=== PATIENT | male | born 1940 | race Caucasian/White ===

== ENCOUNTER → 2016-05-17 | Day surgery (SDC) | payer OTHER ==
[2016-05-05 11:09] VITALS: Ht 172.7 cm; Wt 92.3 kg
[~2016-05-17] VITALS: Ht 172.7 cm; Wt 92.3 kg
[~2016-05-17] MED LIST: ALPR0.25 PO; ATOR10TA88 PO; ATROPINE SULFATE 0.1 MG/ML 5ML SYR IV PRN; EpHEDrine SULFATE INJ 50 MG/ML AMP IV PRN; FENTANYL CITRATE INJ 50 MCG/1 ML 2 ML VIAL ONE; LEVO100T PO; LIDOCAINE HCL 2% 2 ML VIAL (20MG/ML) ONE; PROPOFOL IV EMULSION 10 MG/ML 20 ML VIAL IV ONE; SODIUM CHLORIDE 0.9% 500ML 500 ML IV ONE; ZOLP10TA PO
--- NOTE | 2016-05-17 12:51 | Endo History and Physical ---
History & Physical Date of Service: May 17, 2016. Chief Complaint: History of polyps IBS Referring Physician: Dr Lei Coleman History of Present Illness 75 yo CM who presents for colonoscopy secondary to history of colon polyps. Past Surgical History Hx Cardiac Surgery: No Hx Internal Defibrillator: No Hx Pacemaker: No Hx Abdominal Surgery: Yes (CAUTERIZATION OF ESOPHAGUS (GASTRIC ULCER), PANCHO) Hx of Implantable Prosthesis: No Hx Post-Op Nausea and Vomiting: No Hx Cancer Surgery: No Hx Thoracic Surgery: No Hx Orthopedic: No Hx Urinary Tract Surgery: No Family History None Social History Smoking Status: Former Smoker Hx Substance Use: No Hx Alcohol Use: Yes (2 BEERS DAILY) Allergies Coded Allergies: No Known Allergies (Unverified , 05/05/16) Current Medications Reported Home Medications Medications Dose Route/Sig Max Daily Dose Days Date Category Xanax (Alprazolam) 0.25 Mg Tab 0.25 Mg PO TID PRN 05/05/16 Reported Lipitor (Atorvastatin Calcium) 10 Mg Tab 10 Mg PO Q2D 02/06/13 Reported Ambien (Zolpidem Tartrate) 10 Mg Tab 5 Mg PO HS PRN 02/02/13 Reported Synthroid (Levothyroxine Sodium) 100 Mcg Tab 100 Mcg PO QAM 02/02/13 Reported Vital Signs Weight (Kilograms): 92.27 Height (Feet): 5 Height (Inches): 8 Date Time Temp Pulse Resp B/P Pulse Ox O2 Delivery O2 Flow Rate FiO2 05/17/16 12:40 36.7 76 18 158/84 97 Room Air Physical Exam General Appearance: WD/WN, no apparent distress Respiratory/Chest: Auscultation: breath sounds normal Cardiovascular: Heart Auscultation: RRR Abdomen: Bowel Sounds: normal Inspection & Palpation: soft, non-distended, no tenderness, guarding & rebound Assessment and Plan Assessment: 75 yo CM who presents for colonoscopy secondary to history of colon polyps. Plan: Proceed with colonoscopy.
--- NOTE | 2016-05-17 13:39 | Anesthesiology Progress Note ---
Anesthesia Post Op Note Date & Time May 17, 2016 at 13:39 Vital Signs Pain Intensity: 0 Vital Signs Past 12 Hours Date Time Temp Pulse Resp B/P Pulse Ox O2 Delivery O2 Flow Rate FiO2 05/17/16 12:40 36.7 76 18 158/84 97 Room Air Notes Mental Status: alert / awake / arousable, participated in evaluation Pt Amnestic to Procedure: Yes Nausea / Vomiting: adequately controlled Pain: adequately controlled Airway Patency, RR, SpO2: stable & adequate BP & HR: stable & adequate Hydration State: stable & adequate Anesthetic Complications: no major complications apparent
--- NOTE | 2016-05-17 13:42 | GI REPORT ---
Procedure Date: 05/17/2016 12:53 PM Procedure: Colonoscopy Indications: High risk colon cancer surveillance: Personal history of colonic polyps Medicines: Monitored Anesthesia Care Complications: No immediate complications. Estimated Blood Loss: Estimated blood loss: none. Procedure: Pre-Anesthesia Assessment: - Prior to the procedure, a History and Physical was performed, and patient medications and allergies were reviewed. The patient's tolerance of previous anesthesia was also reviewed. The risks and benefits of the procedure and the sedation options and risks were discussed with the patient. All questions were answered, and informed consent was obtained. Prior Anticoagulants: The patient has taken no previous anticoagulant or antiplatelet agents. ASA Grade Assessment: II - A patient with mild systemic disease. After reviewing the risks and benefits, the patient was deemed in satisfactory condition to undergo the procedure. After I obtained informed consent, the scope was passed under direct vision. Throughout the procedure, the patient's blood pressure, pulse, and oxygen saturations were monitored continuously. The On-site loaner was introduced through the anus and advanced to the terminal ileum. The colonoscopy was performed without difficulty. The patient tolerated the procedure well. The quality of the bowel preparation was good. The terminal ileum, ileocecal valve, appendiceal orifice, and rectum were photographed. Findings: Four sessile polyps were found in the ascending colon and in the cecum. The polyps were 5 to 8 mm in size. These polyps were removed with a hot snare. Resection and retrieval were complete. A 3 mm polyp was found in the cecum. The polyp was sessile. The polyp was removed with a cold biopsy forceps. Resection and retrieval were complete. Multiple small-mouthed diverticula were found in the sigmoid colon. Non-bleeding internal hemorrhoids were found during retroflexion. The hemorrhoids were small. Impression: - Four 5 to 8 mm polyps in the ascending colon and in the cecum, removed with a hot snare. Resected and retrieved. - One 3 mm polyp in the cecum, removed with a cold biopsy forceps. Resected and retrieved. - Diverticulosis in the sigmoid colon. - Non-bleeding internal hemorrhoids. Recommendation: - Resume previous diet. - Continue present medications. - Repeat colonoscopy date to be determined after pending pathology results are reviewed for surveillance based on pathology results. - Return to primary care physician as previously scheduled. Angelito El, 05/17/2016 1:42:23 PM This report has been signed electronically. Note Initiated On: 05/17/2016 12:53 PM
--- NOTE | 2016-05-17 13:45 | Discharge Instructions ---
Endoscopy Patient Instructions Date / Procedure(s) Performed May 17, 2016. Colonoscopy Allergy Information Coded Allergies: No Known Allergies (Unverified , 05/05/16) Discharge Date / Findings May 17, 2016. Colon polyps Diverticulosis Internal hemorrhoids Medication Instructions OK to resume all medications today as prescribed. Reported Home Medications Medications Dose Route/Sig Max Daily Dose Days Date Category Xanax (Alprazolam) 0.25 Mg Tab 0.25 Mg PO TID PRN 05/05/16 Reported Lipitor (Atorvastatin Calcium) 10 Mg Tab 10 Mg PO Q2D 02/06/13 Reported Ambien (Zolpidem Tartrate) 10 Mg Tab 5 Mg PO HS PRN 02/02/13 Reported Synthroid (Levothyroxine Sodium) 100 Mcg Tab 100 Mcg PO QAM 02/02/13 Reported Provider Instructions Activity Restrictions - No exercising or heavy lifting for 24 hours. - Do not drink alcohol the day of the procedure. - Do not drive a car or operate machinery until the day after the procedure. - Do not make any important decisions or sign important papers in 24 hours after the procedure. Following Day: - Return to full activity which may include returning to work/school. Diet Start your diet with liquids and light foods (jello, soup, juice, toast). Then eat your usual diet if not nauseated. Treatment For Common After Affects For mild abdominal pain, bloating, or excessive gas: - Rest - Eat lightly - Lie on right side Follow-Up Information Follow-up with Dr Lei Coleman as scheduled Anesthesia Information What You Should Know You have had a procedure that required some medicine to reduce anxiety and discomfort. This treatment is called moderate sedation. After receiving the treatment, you may be sleepy, but you will be able to breathe on your own. The effects of the treatment may last for several hours. Follow these instructions along with Activity/Diet recommendations noted above: * Do NOT do anything where dizziness or clumsiness would be dangerous. * Rest quietly at home today, then you can be up and about tomorrow. * Have a responsible person stay with you the rest of today. * You may have had an I.V. today. If so, you may take the dressing off later today. Recommendations Call your doctor if: * Trouble breathing * Continuous vomiting for more than 24 hours * Temperature above 101 degrees * Severe abdominal pain or bloating * Pain not relieved by pain medicine ordered * There is increased drainage or redness from any incision * A large amount of rectal bleeding greater than 2-3 tablespoons. (If you had a polyp/s removed or have hemorrhoids, a small amount of blood - from the rectum is to be expected.) * You have any unanswered questions or concerns. IN THE EVENT OF A SERIOUS EMERGENCY, GO TO THE NEAREST EMERGENCY ROOM Your discharge instructions were prepared by provider Angelito El. Patient Instructions Signature Page Kyrie Kahn Patient (or Guardian) Signature/Date: I have read and understand the instructions given to me by my caregivers. Caregiver/RN/Doctor Signature/Date: The above-named patient and/or guardian has received patient instructions on this date. + Original Patient Signature Page (only) stays with chart. Please make copy for patient.
[2016-05-17 13:57] VITALS: BP 141/65; PULSE 65; O2SAT 96
== END | disposition home or self-care (01) ==
LOC: C.GI 12:03
PROVIDERS: ATTEND Internal Medicine
DX: Z12.11 Encounter for screening for malignant neoplasm of colon (principal); Z86.010 Personal history of colon polyps; D12.2 Benign neoplasm of ascending colon; D12.0 Benign neoplasm of cecum; K57.30 Diverticulosis of large intestine without perforation or abscess without bleeding; K64.8 Other hemorrhoids; E03.9 Hypothyroidism, unspecified; F41.9 Anxiety disorder, unspecified; Z90.89 Acquired absence of other organs; Z90.49 Acquired absence of other specified parts of digestive tract; Z98.49 Cataract extraction status, unspecified eye; Z98.890 Other specified postprocedural states; Z87.891 Personal history of nicotine dependence

== ENCOUNTER → 2016-12-13 | Outpatient (CLI) | payer OTHER ==
[~2016-12-13] MED LIST changes: -ATROPINE SULFATE 0.1 MG/ML 5ML SYR IV PRN; -EpHEDrine SULFATE INJ 50 MG/ML AMP IV PRN; -FENTANYL CITRATE INJ 50 MCG/1 ML 2 ML VIAL ONE; -LIDOCAINE HCL 2% 2 ML VIAL (20MG/ML) ONE; -PROPOFOL IV EMULSION 10 MG/ML 20 ML VIAL IV ONE; -SODIUM CHLORIDE 0.9% 500ML 500 ML IV ONE
[2016-12-13 18:09] LABS: BASO % 0.5 %; BASO ABS # 0.03 K/uL (0-0.2); COMPLETE YES; EOS % 1.9 %; HEMATOCRIT 42.9 % (42-52); IG% 0.2 %; LYMPH % 44.3 %; LYMPH ABS # 2.78 K/uL (1.2-3.4); MEAN CELL VOLUME 94.7 fL (80-100); MEAN CORPUSCULAR HEMOGLOBIN 32.5 pg (25-34); MEAN CORPUSCULAR HGB CONC 34.3 g/dl (32-36); MEAN PLATELET VOLUME 10.3 fL (7.4-10.4); MONO % 9.9 %; NEUT % 43.2 %; PLATELET COUNT 218 K/uL (130-400); RED BLOOD COUNT 4.53 M/uL (4.7-6.1); WHITE BLOOD COUNT 6.27 K/uL (4.8-10.8)
[2016-12-13 18:17] LABS: ALT/SGPT 16 U/L (12-78); BLOOD UREA NITROGEN 7 mg/dl (7-18); BUN/CREATININE RATIO 8.8 (10-20); CALCIUM 8.8 mg/dl (8.5-10.1); CARBON DIOXIDE 27 mmol/L (21-32); CHLORIDE 100 mmol/L (98-107); CHOLESTEROL 149 mg/dl (0-200); CREATININE 0.78 mg/dl (0.60-1.40); GLUCOSE 75 mg/dl (70-99); POTASSIUM 4.3 mmol/L (3.5-5.1); SODIUM 134 mmol/L (136-145)
[2016-12-13 18:28] LABS: ALKALINE PHOSPHATASE 96 U/L (45-117); AST/SGOT 18 U/L (15-37); CHOLESTEROL/HDL RATIO 2.9; HDL CHOLESTEROL 52 mg/dl; LDL CHOLESTEROL CALCULATED 61 mg/dl; TRIGLYCERIDES 178 mg/dl (0-150); VERY LOW DENSITY LIPOPROT CALC 36 mg/dl
--- NOTE | 2016-12-21 14:23 | CODING QUERY MEDICAL NECESSITY ---
CQSUPPORTING DIAGNOSIS NEEDED A supporting diagnosis is required for the test/procedure performed on this patient in order for us to be reimbursed by the patient's insurance. Please provide a supporting diagnosis for the following test/procedure listed below next to the test name along with your signature. *If there is no additional diagnosis for this patient that would support the following test/procedure please document that below next to the test/procedure. Test(s)/Procedure(s) that require a supporting diagnosis: DOS 12/13/16 VITAMIN D TEST VITAMIN B12 TEST Provider Signature: Date: Thank you Fabiana Negron Health Information Management Once completed, please kindly fax back to [phone] For questions please call [phone]
== END | disposition home or self-care (01) ==
LOC: C.LABPVFM 11:45
PROVIDERS: ATTEND Internal Medicine Geriatric Medicine
DX: E03.9 Hypothyroidism, unspecified (principal); E78.5 Hyperlipidemia, unspecified; R39.11 Hesitancy of micturition; F41.8 Other specified anxiety disorders; K58.9 Irritable bowel syndrome, unspecified; M47.812 Spondylosis without myelopathy or radiculopathy, cervical region

== ENCOUNTER 2017-05-04 16:34 | Emergency (ER) | payer BC, OTHER ==
[~2017-05-04] VITALS: Ht 172.7 cm; Wt 92.5 kg
[~2017-05-04 16:34] MED LIST changes: +ATOR10TA82 PO; -ATOR10TA88 PO
[2017-05-04 16:45] VITALS: TEMP 36.7; Ht 172.7 cm; Wt 92.5 kg
[2017-05-04 16:50] VITALS: O2SAT 97
[2017-05-04] MEDS ORDERED: MECLIZINE HCL 25 MG TAB PO STA (17:02)
--- NOTE | 2017-05-04 17:06 | EMERGENCY ROOM VISIT NOTE ---
History Report prepared by Daniel: Dudley Chatman Under the Supervision of: Dr. Jonathan Marion M.D. First contact with patient: 16:45 Chief Complaint: DIZZY Stated Complaint: DIZZINESS, NAUSEA Nursing Triage Summary: pt arrives from home via BLS per BLS patient had cold symptoms last week today reports dizziness and nausea with rotation of head and the room spins pt reports he felt well enough to go out with to lunch after lunch sx worsened Per EMS he vomitted X's [address] and feels relief pt still reports dizziness with head rotation History of Present Illness The patient is a 76 year old white male with history of anxiety who presents to the Emergency Room with complaints of persistent dizziness since waking up this morning, several hours prior to arrival. The patient notes that his dizziness is worsened by looking to his left, and is improved when he is looking straight again. When he looks to the left he feels as though the "room is spinning." He denies any associated chest pain or shortness of breath. He has no history of hypertension or cardiac disease. He was recently placed on an antibiotic for a URI, he has finished this prescription at this time. Source of History: patient Onset: Several hours MANAGEMENT COORDINATOR Position: head Quality: other (Dizziness) Timing: other (Persistent) Associated Symptoms: No chest pain, No SOB Review of Systems See HPI for pertinent positives and negatives. A total of ten systems were reviewed and were otherwise negative. Past Medical & Surgical Medical Problems: (1) Anxiety Family History Hypertension Kidney stones Social History Smoking Status: Former Smoker Alcohol Use: occasionally Drug Use: none Marital Status: Housing Status: lives with family Occupation Status: retired Current/Historical Medications Scheduled Atorvastatin (Lipitor), 10 MG PO Q2D Levothyroxine Sodium (Synthroid), 100 MCG PO QAM Scheduled PRN Alprazolam (Xanax), 0.25 MG PO TID PRN for Anxiety Meclizine Hcl (Meclizine Hcl), 1 TAB PO TID PRN for Dizziness or Vertigo Zolpidem Tartrate (Ambien), 5 MG PO HS PRN Allergies Coded Allergies: No Known Allergies (Unverified , 05/04/17) Physical Exam Vital Signs Date Time Temp Pulse Resp B/P (MAP) Pulse Ox O2 Delivery O2 Flow Rate FiO2 05/04/17 20:07 75 18 169/80 93 Room Air 05/04/17 18:10 80 16 169/80 96 Room Air 05/04/17 16:50 97 Room Air 05/04/17 16:47 72 05/04/17 16:45 36.7 76 16 164/77 96 Room Air Physical Exam GENERAL: Awake, alert, well-appearing, NAD HENT: Normocephalic, atraumatic. No reproducible vertigo with left lateral movement of the head. EYES: Normal conjunctiva. Sclera non-icteric. No nystagmus noted. NECK: Supple. No nuchal rigidity. FROM. RESPIRATORY: CTAB, no rhonchi, wheezing, crackles CARDIAC: RRR, no MRG ABDOMEN: Soft, NTND, BS+ MSK: No chest wall TTP, no LE edema NEURO: CN 2-12 intact, 5/5 upper and lower extremity strength, no dysmetria, no drift, good finger to nose, no sensory deficits. No reproducible vertigo with left lateral movement of the head. SKIN: No rash or jaundice noted. There is a horizontal incisional scar over the distal anterior neck. Medical Decision & Procedures ER Provider Diagnostic Interpretation: Radiology results as stated below per my review and radiologist interpretation: HEAD WITHOUT CONTRAST (CT) CT DOSE: 691.05 mGy.cm HISTORY: Mental status change dizziness TECHNIQUE: Multiaxial CT images of the head were performed without the use of intravenous contrast. A dose lowering technique was utilized adhering to the principles of ALARA. Comparison: 11/28/2015 Findings: Chronic opacification right mastoid air cells. Left mastoid air cells are clear. Postoperative changes to the inferior orbital margins which have been described previously. Findings of age-related atrophy and chronic small vessel change. No acute intracranial hemorrhage. Ventricular system is midline. The calvarium and skull base are intact. The ventricles and sulci are within normal limits. There is no mass, hematoma, midline shift, or acute infarct. Impression: No acute intracranial abnormality. Chronic and age-related change. The above report was generated using voice recognition software. It may contain grammatical, syntax or spelling errors. Electronically signed by: Abram Walters M.D. 05/04/2017 5:52 PM Dictated Date/Time: 05/04/2017 5:49 PM Laboratory Results 05/04/17 17:30 05/04/17 17:30 Test 05/04/17 17:30 Red Blood Count 4.32 M/uL (4.7-6.1) Mean Corpuscular Volume 93.1 fL (80-100) Mean Corpuscular Hemoglobin 32.6 pg (25-34) Mean Corpuscular Hemoglobin Concent 35.1 g/dl (32-36) RDW Standard Deviation 45.0 fL (36.4-46.3) RDW Coefficient of Variation 13.1 % (11.5-14.5) Mean Platelet Volume 9.7 fL (7.4-10.4) Anion Gap 5.0 mmol/L (3-11) Est Creatinine Clear Calc Drug Dose 97.8 ml/min Estimated GFR () 105.8 Estimated GFR (Non- 91.3 BUN/Creatinine Ratio 13.9 (10-20) Calcium Level 8.6 mg/dl (8.5-10.1) Magnesium Level 2.2 mg/dl (1.8-2.4) Laboratory results reviewed by me Medications Administered Medications (Trade) Dose Ordered Sig/Shari Route Start Time Stop Time Status Last Admin Dose Admin Meclizine HCl (Antivert Tab) 25 mg NOW STAT PO 05/04/17 17:02 05/04/17 17:07 DC 05/04/17 17:57 25 MG Promethazine HCl (Phenergan Inj) 25 mg STK-MED ONCE .ROUTE 05/04/17 18:18 05/04/17 18:19 DC 05/04/17 18:22 25 MG ECG Indication: other (Dizziness) Rate (beats per minute): 76 Rhythm: normal sinus Findings: other (Normal [place], Normal Intervals, T-wave flattening in Lead III, no other STS or TWI) Change: Patient's electrocardiogram interpreted by me. ED Course 1648: The patient was evaluated by the Student prior to my evaluation. 2010: I reevaluated the patient. Discussed results and discharge instructions: He verbalized understanding and agreement. The patient is ready for discharge. Medical Decision The patient is a 76 year old white male with history of anxiety who presents to the Emergency Room with complaints of persistent dizziness since waking up this morning, several hours prior to arrival. Differential diagnosis includes; benign positional vertigo, dehydration, hypovolemia, anemia, tumor, infection, hypoglycemia, electrolyte abnormalities, cardiac sources, intracerebral event, toxicologic, neurologic, as well as others were entertained. Patient was seen and evaluated the bedside. Patient was complaining some vertiginous symptoms complaining of the room is spinning since waking up this morning. Patient denies any recent trauma. Patient only noted this when he turned his head to the left. Patient has a nonfocal neurologic exam. Patient has no noted nystagmus. Patient does state he recently had a URI and was treated with doxycycline by his PCP. Patient did have blood work completed along with a CT of the brain. CT brain negative. Patient's blood work unremarkable. Did discuss with the patient the differences between peripheral and central causes of vertigo. Patient was given meclizine. Patient was given an additional dose of medication for his vertiginous symptoms. Patient did sit of meclizine was improved. After the second dose of medications the patient was a symptomatically had no difficulty with ambulation or return to the left side. Given the patient's recent URI vestibular neuritis would not be uncommon problem. Given that the patient's symptoms did not involve any nystagmus and no longer present after medication believe less likely to be related to other vascular insufficiency or dissection as these would likely not improve medications. We did discuss strict return precautions and follow-up instructions. I do believe that the patient is suitable for outpatient follow- up and treatment. Patient was given strict follow-up and return precautions as well as warning signs for which to return to the department. Patient was agreeable to this plan of care. Patient was given strict follow-up, discharge, and return precautions. All questions were answered. Patient was deemed suitable for outpatient follow-up at this time. Patient agreed with the plan of care and was safely discharged home. The chart was completed utilizing [employer] Speech voice recognition software. Grammatical errors, random word insertions, pronoun errors, and incomplete sentences are an occasional consequence of this system due to software limitations, ambient noise, and hardware issues. Any formal questions or concerns about the content, text, or information contained within the body of this dictation should be directly addressed to the physician for clarification. Impression Primary Impression: Vertigo Additional Impression: Vestibular neuritis Scribe Attestation The scribe's documentation has been prepared under my direction and personally reviewed by me in its entirety. I confirm that the note above accurately reflects all work, treatment, procedures, and medical decision making performed by me. Departure Information Dispostion Home / Self-Care Prescriptions Meclizine Hcl (MECLIZINE HCL) 25 Mg Tab 1 TAB PO TID Y for Dizziness or Vertigo for 10 Days, #21 TAB Prov: Abram Sheffield M.D. 05/04/17 Referrals Lei Coleman M.D. (PCP) Patient Instructions ED BPV Vertigo, My [facility] Problem Qualifiers Additional Impression: Vestibular neuritis Laterality: left Qualified Codes: H81.22 - Vestibular neuronitis, left ear
--- NOTE | 2017-05-04 17:36 | EMERGENCY ROOM VISIT NOTE ---
History First contact with patient: 16:45 Chief Complaint: DIZZY Stated Complaint: DIZZINESS, NAUSEA Nursing Triage Summary: pt arrives from home via BLS per BLS patient had cold symptoms last week today reports dizziness and nausea with rotation of head and the room spins pt reports he felt well enough to go out with to lunch after lunch sx worsened Per EMS he vomitted X's [address] here and feels relief pt still reports dizziness with head rotation History of Present Illness 76M with hypothyroidism and recent URI presents to the Emergency Room with complaints of dizziness starting after waking up this AM. Pt was brought to the ER via EMS and vomited once on the way here. Pt states that he gets dizzy whenever he turns his head to the left. He has never had symptoms like this before. He has never been diagnosed with vertigo. He denies any recent falls or head trauma. He has no other neurological symptoms such as numbness and tingling or muscle weakness. He describes his dizziness as the room is spinning. He was recently diagnosed with a URI and given doxycycline by his PCP Dr. Coleman. Started using cotton swabs in his ears recently because his heater is loud at night - otherwise he is not sticking anything into his ears. SHX: lives at home with , 30 pack year smoking history but quit over 30 years ago, drinks alcohol socially. ROS: No ringing in his ears, no SOB, no chest pain, no swelling in hands or feet , no abdominal pain, no diarrhea, no dysuria. PT states that he may be a little dehydrated. Review of Systems See HPI for pertinent positives and negatives. A total of ten systems were reviewed and were otherwise negative. Past Medical/Surgical History Medical Problems: (1) Anxiety Family History Hypertension Kidney stones Social History Smoking Status: Former Smoker Alcohol Use: occasionally Drug Use: none Marital Status: Housing Status: lives with family Occupation Status: retired Current/Historical Medications Scheduled Atorvastatin (Lipitor), 10 MG PO Q2D Levothyroxine Sodium (Synthroid), 100 MCG PO QAM Scheduled PRN Alprazolam (Xanax), 0.25 MG PO TID PRN for Anxiety Zolpidem Tartrate (Ambien), 5 MG PO HS PRN Physical Exam Vital Signs Date Time Temp Pulse Resp B/P (MAP) Pulse Ox O2 Delivery O2 Flow Rate FiO2 1/17/18 18:10 80 16 169/80 96 Room Air 05/04/17 16:50 97 Room Air 05/04/17 16:47 72 05/04/17 16:45 36.7 76 16 164/77 96 Room Air Physical Exam Gen: No acute distress. Vomit bag is on the patient's chest and empty. HEENT: Head - normocephalic and atraumatic. Pupils are equal, round, and reactive to light. Extraocular eye muscles are intact and sclera are anicteric. Ears - bilaterally patent canals with noninjected tympanic membranes and no evidence of hemotympanum. Nose - moist nasal mucosa without discharge. Mouth - moist buccal mucosa. Oropharynx is nonerythematous and there is no tonsillar exudate or edema noted. Neck: Supple; no JVD, nuchal rigidity, cervical lymphadenopathy, or auscultated bruits. Heart: Regular rate and rhythm. There is a normal S1 and S2 with no murmurs, clicks, or gallops appreciated. Lungs: Clear to auscultation bilaterally with no wheezes, rales, or rhonchi. Abdomen: Soft, completely nontender, nondistended, with good bowel sounds. There are no palpable pulsatile masses or hepatosplenomegaly. There is no guarding, rigidity, or rebound noted. Extremities: No evidence of cyanosis, clubbing, or edema. There are easily palpable peripheral pulses. Neuro:The patient is awake and alert, oriented to day, time, and place. Muscle strength is 5/5 in all 4 extremities. The patient has equal preconstruction manager strength and equal pedal push and pull. There are no cerebellar signs. Placing the patient in the supine position and making him turn his head to the left and to the right reproduced his dizziness. He had no nystagmus. Medical Decision & Procedures ER Provider Diagnostic Interpretation: HEAD WITHOUT CONTRAST (CT) CT DOSE: 691.05 mGy.cm HISTORY: Mental status change dizziness TECHNIQUE: Multiaxial CT images of the head were performed without the use of intravenous contrast. A dose lowering technique was utilized adhering to the principles of ALARA. Comparison: 11/28/2015 Findings: Chronic opacification right mastoid air cells. Left mastoid air cells are clear. Postoperative changes to the inferior orbital margins which have been described previously. Findings of age-related atrophy and chronic small vessel change. No acute intracranial hemorrhage. Ventricular system is midline. The calvarium and skull base are intact. The ventricles and sulci are within normal limits. There is no mass, hematoma, midline shift, or acute infarct. Impression: No acute intracranial abnormality. Chronic and age-related change. Laboratory Results 05/04/17 17:30 05/04/17 17:30 Test 05/04/17 17:30 Red Blood Count 4.32 M/uL (4.7-6.1) Mean Corpuscular Volume 93.1 fL (80-100) Mean Corpuscular Hemoglobin 32.6 pg (25-34) Mean Corpuscular Hemoglobin Concent 35.1 g/dl (32-36) RDW Standard Deviation 45.0 fL (36.4-46.3) RDW Coefficient of Variation 13.1 % (11.5-14.5) Mean Platelet Volume 9.7 fL (7.4-10.4) Anion Gap 5.0 mmol/L (3-11) Est Creatinine Clear Calc Drug Dose 97.8 ml/min Estimated GFR () 105.8 Estimated GFR (Non- 91.3 BUN/Creatinine Ratio 13.9 (10-20) Calcium Level 8.6 mg/dl (8.5-10.1) Magnesium Level 2.2 mg/dl (1.8-2.4) Medications Administered Medications (Trade) Dose Ordered Sig/Shari Route Start Time Stop Time Status Last Admin Dose Admin Meclizine HCl (Antivert Tab) 25 mg NOW STAT PO 05/04/17 17:02 05/04/17 17:07 DC 05/04/17 17:57 25 MG Promethazine HCl (Phenergan Inj) 25 mg STK-MED ONCE .ROUTE 05/04/17 18:18 05/04/17 18:19 DC 05/04/17 18:22 25 MG ECG Indication: vomiting, other (dizziness) Rhythm: normal sinus (rate of 76) Findings: no acute ischemic change, no ectopy, other (Normal axis, T wave flattening in lead 3, no ST changes) Comparison ECG Date: no prior available Medical Decision The patient's care and disposition was discussed with Dr. Marion, Attending ED Physician. This is a 76M with dizziness. Differential diagnosis include benign positional vertigo, dehydration, hypovolemia, anemia, tumor, infection, hypoglycemia, electrolyte abnormalities, cardiac sources, carotid artery dissection, carotid stenosis, intracerebral event, toxicologic, neurologic, as well as others were entertained. Triage Nursing notes were reviewed. ED Course included an extensive history and physical exam, labs,CT Head and EKG were performed. Labs - CBC (na was 132 but patients baseline appears to be around 135) and BNP and Magnesium were WNL. EKG - NSS, no significant ST changes, no QRS prolongation, no T wave changes. CT Head - WNL Pt was encouraged to increase PO intake (water and soda given at bedside). Pt was given 25mg PO Meclizine. 6:00pm - Patient was reassessed by myself and states he feels a little better. Still got dizzy when he was looking to the right. 6:15pm - 25mg IV Phenergan was ordered. 7:30 - Pt was reassessed and stated that his dizziness has almost completely resolved. Meclizine use was discussed. Also return to the ER instructions were also discussed (irretractable headache, falls, or worsening of his dizziness). The pt was informed about the findings as listed above. All questions were answered. Return instructions were outlined and the patient was discharged in good condition. The patient was referred to PCP for recheck of the current condition. Impression Primary Impression: Vertigo Departure Information Dispostion Home / Self-Care Condition GOOD Referrals Lei Coleman M.D. (PCP) Patient Instructions Dizziness Vertigo Inner Ear, ED Vertigo Unspecified, Meclizine tablets or capsules, My [facility] [employer] Additional Instructions You are being diagnosed with vertigo. It is unclear whether the cause of this vertigo is related benign paroxysmal position vertigo or of a post viral etiology. You are being discharged on a medication called Meclizine. Please take one tablet every 8 hours. We recommend following up with your Primary Care Provider, Dr. Coleman within 7 days. Information on vertigo and Meclizine have been attached to your discharge paperwork. Please read this information carefully. Return to the ER if you experience any worsening of your condition - this includes falls, experiencing the worst headache of your life, or vertigo to the point where you are unable to eat or drink anything. Resident Involvement: Resident Care Provided Care Provided: Adult [facility]
[2017-05-04 17:38] LABS: HEMATOCRIT 40.2 % (42-52); HEMOGLOBIN 14.1 g/dL (14.0-18.0); MEAN CELL VOLUME 93.1 fL (80-100); MEAN CORPUSCULAR HEMOGLOBIN 32.6 pg (25-34); MEAN CORPUSCULAR HGB CONC 35.1 g/dl (32-36); MEAN PLATELET VOLUME 9.7 fL (7.4-10.4); PLATELET COUNT 194 K/uL (130-400); RED CELL DISTRIBUTION WIDTH CV 13.1 % (11.5-14.5)
--- NOTE | 2017-05-04 17:53 | DIAGNOSTIC IMAGING REPORT ---
HEAD WITHOUT CONTRAST (CT) CT DOSE: 691.05 mGy.cm HISTORY: Mental status change dizziness TECHNIQUE: Multiaxial CT images of the head were performed without the use of intravenous contrast. A dose lowering technique was utilized adhering to the principles of ALARA. Comparison: 11/28/2015 Findings: Chronic opacification right mastoid air cells. Left mastoid air cells are clear. Postoperative changes to the inferior orbital margins which have been described previously. Findings of age-related atrophy and chronic small vessel change. No acute intracranial hemorrhage. Ventricular system is midline. The calvarium and skull base are intact. The ventricles and sulci are within normal limits. There is no mass, hematoma, midline shift, or acute infarct. Impression: No acute intracranial abnormality. Chronic and age-related change. The above report was generated using voice recognition software. It may contain grammatical, syntax or spelling errors. Electronically signed by: Abram Walters M.D. 05/04/2017 5:52 PM Dictated Date/Time: 05/04/2017 5:49 PM
[2017-05-04 17:55] LABS: CALCIUM 8.6 mg/dl (8.5-10.1); CREATININE 0.72 mg/dl (0.60-1.40); POTASSIUM 3.7 mmol/L (3.5-5.1)
[2017-05-04] MEDS ORDERED: PROMETHAZINE HCL INJ 25 MG in SODIUM CHLORIDE 0.9% 50ML 50 ML IV STA (18:12)
[2017-05-04] MEDS ORDERED: PROMETHAZINE HCL INJ 25 MG/ML 1 ML VIAL ONE (18:18)
[2017-05-04] MEDS ORDERED: MECL1TAB42 PO (20:00)
[2017-05-04 20:07] VITALS: BP 169/80; PULSE 75; O2SAT 93
== END 2017-05-04 20:14 | disposition home or self-care (01) ==
LOC: EDBD 16:34 → C.EDA 16:35
DX: R42 Dizziness and giddiness (principal); H81.22 Vestibular neuronitis, left ear; R11.0 Nausea; Z87.891 Personal history of nicotine dependence

== ENCOUNTER 2024-04-08 01:02 | Observation (INO) ==
[2024-04-08 01:42] LABS: Basophils # (auto) 0.03 K/uL (0.00-0.20); Basophils % (auto) 0.2 %; Eosinophils # (auto) 0.07 K/uL (0.00-0.50); Eosinophils % (auto) 0.6 %; Hematocrit (blood only) 41.8 % (42.0-52.0); Hemoglobin 14.1 g/dl (14.0-18.0); Immature Granulocytes # (auto) 0.03 K/uL (0.01-0.20); Immature Granulocytes % (auto) 0.2 %; Lymphocytes # (auto) 2.19 K/uL (1.20-3.40); Lymphocytes % (auto) 18.1 %; Mean Corpuscular Hemoglobin 31.3 pg (25.0-34.0); Mean Corpuscular Hgb Conc 33.7 g/dL (32.0-36.0); Mean Corpuscular Volume 92.9 fL (80.0-100.0); Mean Platelet Volume 10.1 fL (9.4-12.4); Monocytes # (auto) 1.35 K/uL (0.11-0.59); Monocytes % (auto) 11.2 %; Neutrophils # (auto) 8.41 K/uL (1.40-6.50); Neutrophils % (auto) 69.7 %; Platelet Count 189 K/uL (130-400); RDW Coefficient of Variation 13.9 % (11.5-14.5); RDW Standard Deviation 47.8 fL (36.4-46.3); White Blood Count 12.08 K/ul (4.8-10.8)
[2024-04-08] MEDS: SODIUM CHLORIDE 0.9% 1,000 ML IV SCH (01:45)
[2024-04-08 01:52] LABS: Albumin Globulin Ratio 1.3 (0.9-2); Albumin Level 4.7 gm/dl (3.4-5.0); BUN Creatinine Ratio 18.5 (10-20); Bilirubin,Total 1.3 mg/dl (0.2-1.0); Calcium 9.3 mg/dl (8.6-10.3); Creatinine Clr Calc Pharmacy 96.8 ml/min; Globulin 3.5 gm/dl (2.5-4.0); Magnesium 2.1 mg/dl (1.7-2.4); Potassium 3.8 mmol/L (3.5-5.1); Total Protein 8.2 gm/dl (6.0-8.3)
[2024-04-08 01:58] LABS: Troponin I High Sensitivity 6.8 pg/ml (0-20)
[2024-04-08 02:02] LABS: Prothrombin Time 11.2 Seconds (9.0-12.0)
[2024-04-08 02:08] LABS: Thyroid Stimulating Hormone 3.457 uIu/ml (0.300-4.500)
[2024-04-08 02:25] LABS: Adenovirus PCR Not Detected (NotDetected); Bordetella parapertussis PCR Not Detected (NotDetected); Bordetella pertussis PCR Not Detected (NotDetected); Chlamydia pneumoniae PCR Not Detected (NotDetected); Coronavirus 229E PCR Not Detected (NotDetected); Coronavirus CoV-2 (COVID19)PCR Not Detected (NotDetected); Coronavirus HKU1 PCR Not Detected (NotDetected); Coronavirus NL63 PCR Not Detected (NotDetected); Coronavirus OC43PCR Not Detected (NotDetected); Human Metapneumovirus PCR Not Detected (NotDetected); Influenza A PCR Not Detected (NotDetected); Influenza B PCR Not Detected (NotDetected); Mycoplasma pneumoniae PCR Not Detected (NotDetected); Parainfluenza Virus 1 PCR Not Detected (NotDetected); Parainfluenza Virus 2 PCR Not Detected (NotDetected); Parainfluenza Virus 3 PCR Not Detected (NotDetected); Parainfluenza Virus 4 PCR Not Detected (NotDetected); Respiratory Syncytial VirusPCR Not Detected (NotDetected); Rhinovirus/Enterovirus PCR Not Detected (NotDetected)
--- NOTE | 2024-04-08 03:14 | Emergency Department Note ---
Impression & Plan Bilateral leg weakness ED Provider Note ED Provider Note NAME: MILES HARE AGE:83 SEX: Male : 1940 ARRIVES VIA: EMS INFORMANT: Patient ED PROVIDER(s): Rita Guan DO CHIEF COMPLAINT: Weakness, unable to stand HPI: This is an 83-year-old male who presents emergency department after an episode tonight where he was too weak to be able to stand up. Patient states he was reading in bed and went to stand up to put his book down and turn off the light and realized he could not stand on his legs at bedside. He slid down out of his bed onto the floor and was unable to stand back up. He called for his who he lives with and she called 911. Patient denies any pain. He states his arms seem to be moving well however his legs just "would not hold him". He denies any prior similar episodes. He denies any recent illness, fevers or chills. He denies any recent change in medications. He denies any concern for injury secondary to this event tonight. He denies any coming numbness or tingling. He denies headaches, vision changes, dizziness, chest pain, or difficulty breathing. Patient states he does also take medication to help him sleep. PAST MEDICAL HISTORY:See Below PAST SURGICAL HISTORY:See Below FAMILY HISTORY:See Below SOCIAL HISTORY:See Below HOME MEDICATIONS:See Below ALLERGIES:See Below VITALS:See Below PHYSICAL EXAMINATION: GENERAL: alert, well appearing, well nourished, no distress, non-toxic EYE EXAM: normal conjunctiva, PERRL and EOM's grossly intact OROPHARYNX: no exudate, no erythema, lips, buccal mucosa, and tongue normal and mucous membranes are moist NECK: supple, no nuchal rigidity, no adenopathy, non-tender LUNGS: Clear to auscultation. Normal chest wall mechanics, no w/r/r HEART: no murmurs, S1 normal and S2 normal ABDOMEN: abdomen soft, non-tender, normo-active bowel sounds, no masses, no rebound or guarding. SKIN: no rashes, petechiae, orbruising UPPER EXTREMITIES: upper extremities are grossly normal. FROM, nml pulses b/l. LOWER EXTREMITIES: No pitting edema. FROM, nml pulses b/l. NEURO EXAM: Normal sensorium, cranial nerves II-XII grossly intact, normal speech, no facial droop,nogross weakness of arms, no gross weakness of legs. Gross sensation intact. No ataxia.Negative pronator drift. Vital Signs: reviewed and remarkable Differential Diagnosis: dehydration, stroke, anemia, hypoglycemia, hyponatremia, hypernatremia, urinary tract infection, pneumonia, bronchitis, sepsis, gastroenteritis, additional abdominal pathology, metabolic abnormalities, as well as others were considered MEDICAL DECISION MAKING: This is an 83 yo male brought in by EMS due to concern b/l LE weakness. He was afebrile and VS stable. He had a normal and nonfocal neuro exam at bedside. Labs drawn and sent, IV established, EKG and CXR performed and interpreted at bedside, and patient placed on telemetry. He was sent for CT head initially and urine collected. Nasal swab sent for viral resp panel. CT with abnormality noted and concern for possible CVA. Other labs reassuring, urine with infection, and biofire negative. No ectopy or dysrhythmia noted on tele. He was sent for CTA head/neck additionally and case discussed with [place] hospitalist for additional inpatient evaluation. Consultation(s): 0447: Discussed with Dr. Gavin, [place] hospitalist team, for additional evaluation and mgmt. ER Treatment Provided: See below Diagnostics Interpreted By Me: -ECG: Normal sinus at 87, normal axis, normal intervals, no acute ST/T wave changes -Cardiac Monitoring: An order was placed for continuous cardiac monitoring. The monitor shows a rate of 80 with normal sinus rhythm. -Laboratory studies: As stated above and show below. -Imaging studies: X-ray Chest: A single view study of the chest was reviewed and was negative for cardiomegaly, focal infiltrate, effusion, pulmonary edema, or wide mediastinum. Triage Nursing Note Reviewed Prior/Outside Records Reviewed Past Med/Surg History Problem List (Updated 04/08/24 @ 09:20 by Kadeem Aguilar MD) Carotid stenosis Cerebrovascular disease TIA (transient ischemic attack) Bilateral leg weakness (Acute) Leukocytosis Osteoarthritis of right knee History of colon polyps Encounter for pre-operative examination Irritable bowel syndrome Mild aortic stenosis Carotid bruit Vitamin D deficiency (Chronic) Vitamin B12 deficiency (Acute) Tubular adenoma of colon (Acute) Insomnia (Chronic) Hypothyroidism (Chronic) Gastroesophageal reflux disease (Acute) Dyslipidemia (Acute) Depression with anxiety (Chronic) Benign enlargement of prostate (Acute) Medical History Nausea and vomiting after administration of anesthetic agent Osteoarthritis History of gastric ulcer 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 Surgical History History of esophagogastroduodenoscopy (EGD) History of wisdom tooth extraction History of tooth extraction partial lower History of eye surgery right eye macular pucker H/O colonoscopy with polypectomy S/P knee surgery x2-- left knee S/P cholecystectomy S/P cataract surgery bilt Family History Mother Heart disease Myocardial infarction Grandmother (Maternal) Myocardial infarction Other No family history of adverse response to anesthesia Denies family history of Ovarian cancer Prostate cancer Breast cancer Colorectal cancer Social History Smoking Status: Former smoker Tobacco Type: Cigarettes Cigarettes Per Day: 2 packs; Second Hand Exposure: No; Do You Dip or Chew Tobacco: No; Hx Alcohol Use: Yes Alcohol type: beer and wine Alcohol Intake Frequency: Monthly or Less Hx Substance Use: No Preferred Language: Georgian Communication Ability: Effective Visual Impairment: No Limitations Hearing Ability: Hard of Hearing Grinder Set Up Operator Surface Required: No Beliefs That Will Affect Care: None marital status: Current Living Situation: Spouse Current Living Situation Comment: home with spouse current occupational status: retired Feels Safe at Home: Yes Childhood Exposure to Second-Hand Smoke: Yes Dental Care, Regularly: No Physical Activity Frequency: 1-2 Times per Week Seatbelt Use: always Sunscreen Use: No Assistive Devices: Glasses Allergies Allergies Allergy/AdvReac Type Severity Reaction Status Date / Time escitalopram [From Lexapro] AdvReac Unknown "med Verified 04/08/24 02:34 doesn't work" venlafaxine AdvReac Unknown "med Verified 04/08/24 02:34 doesn't work" Home Meds Home Medications Medication Instructions Recorded Confirmed buspirone 5 mg tablet 5 mg PO BID PRN Anxiety 04/08/24 04/08/24 Previous Rx's Medication Instructions Recorded omeprazole 20 mg capsule,delayed 20 mg PO DAILY PRN dyspepsia #30 05/31/19 release caps atorvastatin 10 mg tablet 10 mg PO DAILY #90 tabs 08/30/23 levothyroxine 112 mcg tablet 112 mcg PO QAM #90 tabs 08/30/23 zolpidem 10 mg tablet 10 mg PO HS PRN sleep #90 tabs 11/24/23 tamsulosin 0.4 mg capsule 0.4 mg PO QPM #90 caps 01/12/24 alprazolam 0.25 mg tablet 0.25 mg PO TID anxiety #270 tabs 04/06/24 aspirin 81 mg capsule 81 mg PO DAILY #60 caps 04/08/24 Results & Data (ED) Vital Signs Vital Signs - 24 hr 04/08/24 01:04 04/08/24 01:10 04/08/24 01:14 Temperature 36.9 C Temperature Source Oral Pulse Rate 92 H 91 H Pulse Rate [Apical] Pulse Rhythm [Apical] Pulse Strength [Apical] Respiratory Rate 20 Respiratory Effort / Characteristics Respiratory Depth Respiratory Pattern Blood Pressure 184/83 H Blood Pressure [Left Arm] Blood Pressure Mean 116 Blood Pressure Mean [Left Arm] Blood Pressure Position [Left Arm] Pulse Oximetry 95 Oxygen Delivery Method Room Air Room Air Sepsis Recent Fever Within 48 Hours No Sepsis New/Unexplained Change in Mental Status N/A Sepsis Action Taken by Nursing No Action Required 04/08/24 03:00 04/08/24 05:00 04/08/24 05:24 Temperature Temperature Source Pulse Rate 93 H Pulse Rate [Apical] 84 75 Pulse Rhythm [Apical] Regular Pulse Strength [Apical] Normal Respiratory Rate 18 18 Respiratory Effort / Characteristics Non-Labored Spontaneous Respiratory Depth Normal Respiratory Pattern Regular Blood Pressure Blood Pressure [Left Arm] 129/65 120/66 Blood Pressure Mean Blood Pressure Mean [Left Arm] 86 84 Blood Pressure Position [Left Arm] Semi-fowlers Pulse Oximetry 95 99 Oxygen Delivery Method Room Air Room Air Sepsis Recent Fever Within 48 Hours Sepsis New/Unexplained Change in Mental Status Sepsis Action Taken by Nursing Laboratory Data 04/08/24 01:20 04/08/24 01:20 Lab Results 04/08/24 04/08/24 Range/Units 01:20 01:21 WBC 12.08 H (4.8-10.8) K/ul RBC 4.50 L (4.70-6.10) M/uL Hgb 14.1 (14.0-18.0) g/dl Hct 41.8 L (42.0-52.0) % MCV 92.9 (80.0-100.0) fL MCH 31.3 (25.0-34.0) pg MCHC 33.7 (32.0-36.0) g/dL RDW Std Deviation 47.8 H (36.4-46.3) fL RDW Coeff of Brennen 13.9 (11.5-14.5) % Plt Count 189 (130-400) K/uL MPV 10.1 (9.4-12.4) fL Immature Gran % (Auto) 0.2 % Neut % (Auto) 69.7 % Lymph % (Auto) 18.1 % [place] % (Auto) 11.2 % Eos % (Auto) 0.6 % Baso % (Auto) 0.2 % Neut # (Auto) 8.41 H (1.40-6.50) K/uL Lymph # (Auto) 2.19 (1.20-3.40) K/uL [place] # (Auto) 1.35 H (0.11-0.59) K/uL Eos # (Auto) 0.07 (0.00-0.50) K/uL Baso # (Auto) 0.03 (0.00-0.20) K/uL Immature Gran # (Auto) 0.03 (0.01-0.20) K/uL PT 11.2 (9.0-12.0) Seconds INR 1.0 (0.9-1.1) Sodium 132 L (136-145) mmol/L Potassium 3.8 (3.5-5.1) mmol/L Chloride 96 L (98-107) mmol/L Carbon Dioxide 28 (21-32) mmol/L Anion Gap 8 (3-11) BUN 12 (6-23) mg/dl Creatinine 0.65 (0.6-1.4) mg/dl Est Cr Clr Drug Dosing 96.8 ml/min eGFR 94.08 BUN/Creatinine Ratio 18.5 (10-20) Glucose 109 H (70-99(Fasting)) mg/dl Calcium 9.3 (8.6-10.3) mg/dl Magnesium 2.1 (1.7-2.4) mg/dl Total Bilirubin 1.3 H (0.2-1.0) mg/dl AST 16 (13-39) U/L ALT 9 (7-52) U/L Alkaline Phosphatase 78 (34-104) U/L Troponin I High Sens 6.8 (0-20) pg/ml Total Protein 8.2 (6.0-8.3) gm/dl Albumin 4.7 (3.4-5.0) gm/dl Globulin 3.5 (2.5-4.0) gm/dl Albumin/Globulin Ratio 1.3 (0.9-2) Triglycerides 123 (0-150) mg/dl Cholesterol 161 (0-200) mg/dl LDL Cholesterol, Calc 83 mg/dl VLDL Cholesterol, Calc 25 (0-30) mg/dl HDL Cholesterol 53 mg/dl Cholesterol/HDL Ratio 3.0 (0-5) Lipase 23 (11-82) U/L TSH 3.457 (0.300-4.500) uIu/ml Adenovirus (PCR) Not Detected (NotDetected) B. pertussis DNA (PCR) Not Detected (NotDetected) B.parapertussis DNA PCR Not Detected (NotDetected) C. pneumoniae DNA (PCR) Not Detected (NotDetected) Coronavirus OC43 (PCR) Not Detected (NotDetected) Coronavirus HKU1 (PCR) Not Detected (NotDetected) Coronavirus 229E (PCR) Not Detected (NotDetected) SARS-CoV-2 (PCR) Not Detected (NotDetected) Coronavirus NL63 (PCR) Not Detected (NotDetected) Human Metapneumovir PCR Not Detected (NotDetected) Influenza Type A (PCR) Not Detected (NotDetected) Influenza Type B (PCR) Not Detected (NotDetected) M. pneumoniae (PCR) Not Detected (NotDetected) Parainfluenza 1 (PCR) Not Detected (NotDetected) Parainfluenza 2 (PCR) Not Detected (NotDetected) Parainfluenza 3 (PCR) Not Detected (NotDetected) Parainfluenza 4 (PCR) Not Detected (NotDetected) RSV (PCR) Not Detected (NotDetected) Entero/Rhino (PCR) Not Detected (NotDetected) Administered Medications Discontinued Medications Alprazolam (Alprazolam 0.25 Mg Tablet) 0.25 mg PO TID [facility] Stop: 05/08/24 08:59 Last Admin: 04/08/24 14:02 Dose: Not Given Documented By: Admin: 04/08/24 08:08 Dose: 0.25 mg Documented By: IVETTE Atorvastatin Calcium (Atorvastatin 10 Mg Tab) 10 mg PO DAILY [facility] Stop: 05/08/24 08:59 Last Admin: 04/08/24 08:06 Dose: 10 mg Documented By: IVETTE Sodium Chloride (Nss) 1,000 mls @ 125 mls/hr IV .Q8H [facility] Stop: 04/09/24 01:29 Last Admin: 04/08/24 10:42 Dose: 125 mls/hr Documented By: Infusion: 04/08/24 10:14 Dose: Infused Documented By: Admin: 04/08/24 01:45 Dose: 125 mls/hr Documented By: DENIS Ioversol (Optiray 320 125ml) 120 ml IV ONCE ONE Stop: 04/08/24 03:45 Last Admin: 04/08/24 03:38 Dose: 120 ml Documented By: MACKENZIE Levothyroxine Sodium (Levothyroxine Sodium 112 Mcg Tablet) 112 mcg PO DAILYBB [facility] Stop: 05/08/24 06:29 Last Admin: 04/08/24 08:06 Dose: 112 mcg Documented By: IVETTE Discharge Plan Visit Data Chief Complaint: Weakness Stated Complaint: WEAKNESS/SLIPPED OUT OF BED ED Provider: Rita Guan Discharge Problem: Bilateral leg weakness Patient Disposition: Admitted As Inpatient Discharge Instructions Interventions: ED Discharge Assessment Last Done: 04/08/24 06:20
--- NOTE | 2024-04-08 03:23 | CT Scan Report ---
EXAM: CT head/brain wo con CLINICAL HISTORY: Weakness , fall from bed. TECHNIQUE: An axial non-contrast CT scan of the brain was performed from the skull base to the high parietal region with coronal and sagittal reformats. One of the following dose-reduction techniques was utilized for this exam. Automated exposure control, adjustment of the mA and/or kV according to patient size, and use of iterative reconstruction. COMPARISON: 05/04/2017 , 11/28/2015 CT. FINDINGS: A small hypodense area in the left basal ganglia not obvious in the previous CT advised MRI with DWI images to rule out acute ischemic insult if clinically warranted. A few tiny ill-defined [id number] areas are noted bilaterally in the subcortical and deep white matter, suggestive of microvascular ischemic changes. The ventricular system, cortical sulci, and basal cisterns are prominent and consistent with senile changes. Suarez-white matter differentiation is maintained. No midline shifts or deformity. No intracerebral or extra axial hematoma. Normal CT appearance of the posterior fossa structures namely the cerebellar hemispheres, brainstem, and cerebellar peduncles. The bony structures in the skull base are unremarkable. There are no definite calvarium fractures. Piercing/metallic wires were noted at the bilateral anterior maxillary sinus and the GE junction right frontal bone with the sphenoid bone The scanned paranasal sinuses are clear. IMPRESSION: 1. A small hypodense area in the left basal ganglia not obvious in the previous CT. Advised MRI with DWI images to rule out acute ischemic insult if clinically warranted. 2. No acute post-traumatic sequelae on CT head. 3. Microvascular white matter ischemic changes and senile changes. Electronically signed by Bryce Reagan 04-08-2024 03:23 AM
[2024-04-08] MEDS: OPTIRAY 320 125ml IV ONE (03:38)
--- NOTE | 2024-04-08 04:00 | XRay Report ---
EXAM: XR chest 1V portable CLINICAL HISTORY: WEAKNESS TECHNIQUE: An X-ray image of the chest is obtained in AP projection. COMPARISON: No prior studies are available for comparison. FINDINGS: Pulmonary Parenchyma: Prominent both maryana with exaggerated basal broncho vascular markings suggesting lung congestion for clinical correlation. Hazziness of the left lower lung zone.?? projectional Minimal blunting of the right costophrenic angle suggesting minimal pleural effusion/pleural thickening. No evidence of consolidation, collapse, or focal opacities. No pulmonary nodules are identified. No evidence of pleural effusion or pleural thickening. Heart and Mediastinum: Heart size and shape are normal. No mediastinal widening or masses. No hilar or mediastinal lymphadenopathy. Atherosclerotic aortic calcification is noted. Bony Thorax: The bony thorax appears intact without fractures or deformities. Soft Tissues: Soft tissues overlying the chest wall are unremarkable. IMPRESSION: 1. Prominent both maryana with exaggerated perihilar and basal broncho vascular markings suggesting lung congestion for clinical correlation. 2. Minimal blunting of the right costophrenic angle suggesting minimal right-sided pleural effusion/pleural thickening. Electronically signed by Bryce Reagan 04-08-2024 03:59 AM
--- NOTE | 2024-04-08 05:05 | History & Physical Report ---
Date of Service April 08, 2024 Assessment & Plan (1) Bilateral leg weakness: (2) Leukocytosis: (3) Insomnia: (4) Gastroesophageal reflux disease: (5) Dyslipidemia: (6) Depression with anxiety: Plan Left Basal Ganglia Abnormality on Imaging -CT head showed left basal ganglia with hypodensity, CTA neck showed atherosclerotic changes including calcified atheromatous plaques of both carotid bulbs -In setting of sudden onset LE weakness, however gross motor strength appears intact on evaluation -MRI brain ordered to help rule out acute ischemic infarct -Continue q4h neuro checks -Will obtain lipid panel, continue current statin at present -Neurology consulted, appreciate recommendations Bilateral Lower Extremity Weakness -Sudden onset, felt like legs "gave out" -Sensation intact and gross motor strength appear intact on exam -CT head showed possible L basal ganglia hypodensity, awaiting MRI -PT/OT consulted Insomnia | Anxiety/Depression -Continue home meds, Ambien, Xanax, Buspar -Consider discussion with patient to decrease benzodiazepines, could contribute to weakness Leukocytosis -Mild leukocytosis on CBC in ED -Repeat CBC ordered for tomorrow a.m. -UA ordered, patient denies any current or recent illnesses GERD -Continue PPI Hypothyroidism -Continue levothyroxine Admit to med/tele Diet: Heart healthy VTE Prophylaxis: defer while awaiting MRI Code Status: Full Code History of Present Illness Primary Care Provider: Shaun Crandall MD Kyrie Kahn is a 83 year-old male who presented to the ED via ambulance due to weakness/inability to stand. His medical history is significant for dyslipid emia, depression with anxiety, GERD, hypothyroidism, insomnia, IBS, mild aortic stenosis. Patient states that he was reading in bed overnight when he tried to stand up to rearrange his pillows and found that he was unable to stand/support his weight. He states that he slid onto the ground and was unable to get up from the floor- he then called his who was in the home also and she called 911. Patient states that he can feel his legs like normal, no tingling or numbness and no upper extremity weakness. Denies prior episodes like this. Was feeling well in the past few weeks- no recent illnesses, no chest pain or SOB, no medication changes. Denies changes in his speech or vision. ED Course: -CT head -CTA head/neck -Chest x-ray -CBC, CMP, TSH Allergies Allergy/AdvReac Type Severity Reaction Status Date / Time escitalopram [From Lexapro] AdvReac Unknown "med Verified 04/08/24 02:34 doesn't work" venlafaxine AdvReac Unknown "med Verified 04/08/24 02:34 doesn't work" Home Medications Medication Instructions Recorded Confirmed Type omeprazole 20 mg capsule,delayed 20 mg PO DAILY PRN dyspepsia #30 05/31/19 04/08/24 Rx release caps atorvastatin 10 mg tablet 10 mg PO DAILY #90 tabs 08/30/23 04/08/24 Rx levothyroxine 112 mcg tablet 112 mcg PO QAM #90 tabs 08/30/23 04/08/24 Rx zolpidem 10 mg tablet 10 mg PO HS PRN sleep #90 tabs 11/24/23 04/08/24 Rx tamsulosin 0.4 mg capsule 0.4 mg PO QPM #90 caps 01/12/24 04/08/24 Rx alprazolam 0.25 mg tablet 0.25 mg PO TID anxiety #270 tabs 04/06/24 04/08/24 Rx aspirin 81 mg capsule 81 mg PO DAILY #60 caps 04/08/24 Rx buspirone 5 mg tablet 5 mg PO BID PRN Anxiety 04/08/24 04/08/24 History Past Med/Surg History Problem List (Updated 04/08/24 @ 09:20 by Kadeem Aguilar MD) Carotid stenosis Cerebrovascular disease TIA (transient ischemic attack) Bilateral leg weakness (Acute) Leukocytosis Osteoarthritis of right knee History of colon polyps Encounter for pre-operative examination Irritable bowel syndrome Mild aortic stenosis Carotid bruit Vitamin D deficiency (Chronic) Vitamin B12 deficiency (Acute) Tubular adenoma of colon (Acute) Insomnia (Chronic) Hypothyroidism (Chronic) Gastroesophageal reflux disease (Acute) Dyslipidemia (Acute) Depression with anxiety (Chronic) Benign enlargement of prostate (Acute) Medical History Nausea and vomiting after administration of anesthetic agent Osteoarthritis History of gastric ulcer 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 Surgical History History of esophagogastroduodenoscopy (EGD) History of wisdom tooth extraction History of tooth extraction partial lower History of eye surgery right eye macular pucker H/O colonoscopy with polypectomy S/P knee surgery x2-- left knee S/P cholecystectomy S/P cataract surgery bilt Family History Mother Heart disease Myocardial infarction Grandmother (Maternal) Myocardial infarction Other No family history of adverse response to anesthesia Denies family history of Ovarian cancer Prostate cancer Breast cancer Colorectal cancer Social History Smoking Status: Former smoker Tobacco Type: Cigarettes Cigarettes Per Day: 2 packs; Second Hand Exposure: No; Do You Dip or Chew Tobacco: No; Hx Alcohol Use: Yes Alcohol type: beer and wine Alcohol Intake Frequency: Monthly or Less Hx Substance Use: No Preferred Language: Hungarian Communication Ability: Effective Visual Impairment: No Limitations Hearing Ability: Hard of Hearing Manager Demand Required: No Beliefs That Will Affect Care: None marital status: Current Living Situation: Spouse Current Living Situation Comment: home with spouse current occupational status: retired Feels Safe at Home: Yes Childhood Exposure to Second-Hand Smoke: Yes Dental Care, Regularly: No Physical Activity Frequency: 1-2 Times per Week Seatbelt Use: always Sunscreen Use: No Assistive Devices: Glasses Review of Systems Review of Systems: As per above Physical Exam Constitutional: WD/WN, vitals as above Eyes: + anicteric sclerae and PERRL; no conjun ctival abnormality ENMT: Ears: no external ear abnormality Nose: no external nose abnormality Moist mucous membranes Respiratory: normal respiratory effort, lungs clear to auscultation Cardiovascular: Rate/Rhythm: regular rate and regular rhythm +systolic murmur, no lower extremity jem ma Gastrointestinal (Abdomen): Inspection/Auscultation: abdomen normal to inspection; abdomen not distended Percussion/Palpation: abdomen soft; abdomen nontender Musculoskeletal: Normal strength of bilateral lower extremities with flexion against resistance. 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 Skin: no rashes, warm and dry Neurologic: CN's II-XI intact bilaterally, moves all extremities and awake; no focal motor deficits Sensation intact at bilateral lower extremities Psychiatric: A+Ox3, euthymic affect Results & Data Results & Data Vital Signs (Past 12 Hours) Vital Signs Temp Pulse Pulse Resp BP BP Pulse Ox 04/08/24 03:00 84 18 129/65 95 04/08/24 01:14 91 H 04/08/24 01:10 04/08/24 01:04 36.9 C 92 H 20 184/83 H 95 O2 Del Method 04/08/24 03:00 Room Air 04/08/24 01:14 04/08/24 01:10 Room Air 04/08/24 01:04 Room Air Diagnostic Findings Head CT 04/08/24 01:19 EXAM: CT head/brain wo con CLINICAL HISTORY: Weakness , fall from bed. TECHNIQUE: An axial non-contrast CT scan of the brain was performed from the skull base to the high parietal region with coronal and sagittal reformats. One of the following dose-reduction techniques was utilized for this exam. Automated exposure control, adjustment of the mA and/or kV according to patient size, and use of iterative reconstruction. COMPARISON: 05/04/2017 , 11/28/2015 CT. FINDINGS: A small hypodense area in the left basal ganglia not obvious in the previous CT advised MRI with DWI images to rule out acute ischemic insult if clinically warranted. A few tiny ill-defined [id number] areas are noted bilaterally in the subcortical and deep white matter, suggestive of microvascular ischemic changes. The ventricular system, cortical sulci, and basal cisterns are prominent and consistent with senile changes. Suarez-white matter differentiation is maintained. No midline shifts or deformity. No intracerebral or extra axial hematoma. Normal CT appearance of the posterior fossa structures namely the cerebellar hemispheres, brainstem, and cerebellar peduncles. The bony structures in the skull base are unremarkable. There are no definite calvarium fractures. Piercing/metallic wires were noted at the bilateral anterior maxillary sinus and the GE junction right frontal bone with the sphenoid bone The scanned paranasal sinuses are clear. IMPRESSION: 1. A small hypodense area in the left basal ganglia not obvious in the previous CT. Advised MRI with DWI images to rule out acute ischemic insult if clinically warranted. 2. No acute post-traumatic sequelae on CT head. 3. Microvascular white matter ischemic changes and senile changes. Electronically signed by Bryce Reagan 04-08-2024 03:23 AM Chest X-Ray 04/08/24 01:20 EXAM: XR chest 1V portable CLINICAL HISTORY: WEAKNESS TECHNIQUE: An X-ray image of the chest is obtained in AP projection. COMPARISON: No prior studies are available for comparison. FINDINGS: Pulmonary Parenchyma: Prominent both maryana with exaggerated basal broncho vascular markings suggesting lung congestion for clinical correlation. Hazziness of the left lower lung zone.?? projectional Minimal blunting of the right costophrenic angle suggesting minimal pleural effusion/pleural thickening. No evidence of consolidation, collapse, or focal opacities. No pulmonary nodules are identified. No evidence of pleural effusion or pleural thickening. Heart and Mediastinum: Heart size and shape are normal. No mediastinal widening or masses. No hilar or mediastinal lymphadenopathy. Atherosclerotic aortic calcification is noted. Bony Thorax: The bony thorax appears intact without fractures or deformities. Soft Tissues: Soft tissues overlying the chest wall are unremarkable. IMPRESSION: 1. Prominent both maryana with exaggerated perihilar and basal broncho vascular markings suggesting lung congestion for clinical correlation. 2. Minimal blunting of the right costophrenic angle suggesting minimal right-sided pleural effusion/pleural thickening. Electronically signed by Bryce Reagan 04-08-2024 03:59 AM Head CTA 04/08/24 03:26 EXAM: CT angio head w con CLINICAL HISTORY: Weakness, fall from bed. TECHNIQUE: CT angiography of the head was performed following the intravenous administration of 120 ml optiray 320 of iodinated contrast material. Contiguous axial images were obtained from the base of the skull to the vertex. Coronal and sagittal reformatted images were also reviewed. One of these 3D techniques was utilized: Maximum Intensity Pixel (MIP), 3D Reconstructed Images, Volume Rendered Images, Surface Shaded Rendering. One of the following dose-reduction techniques was utilized for this exam. Automated exposure control, adjustment of the mA and/or kV according to patient size, and use of iterative reconstruction. COMPARISON: Reviewing CT study made on the same day. FINDINGS: Intracranial Arteries: Atherosclerotic changes of the cavernous and supra-clinoid segments of both internal carotid arteries intracranial parts extending into M1 segment of both middle cerebral arteries without significant arterial stenosis or occlusion. Atherosclerotic changes of the intracranial segments of vertebral arteries with no significant vascular stenosis or occlusion. Otherwise, The intracranial arteries, including the anterior cerebral arteries, middle cerebral arteries, posterior cerebral arteries, basilar artery, and vertebral arteries, are all patent without evidence of significant stenosis, aneurysm, or dissection. There is no evidence of vascular malformations. [place]: The [place] is intact with no anatomical variations or abnormalities noted. All segments are well-visualized and normal in appearance. Venous System: The visualized portions of the venous system, including the dural venous sinuses, are patent with no evidence of thrombosis. Brain Parenchyma: A small hypodense area in the left basal ganglia not obvious in the previous CT. Advised MRI with DWI images to rule out acute ischemic insult if clinically warranted. No acute post-traumatic sequelae on CT head. Microvascular white matter ischemic changes and senile changes Bones: The bony structures of the skull are intact without evidence of fracture or destructive lesions. Soft Tissues: The visualized soft tissues of the head are unremarkable. Additional Findings: Right mastoiditis. IMPRESSION: 1. Atherosclerotic changes of the cerebral arteries without significant vascular stenosis or occlusion. 2. No acute bleeding or vascular aneurysms. 3. Right mastoiditis. Electronically signed by Bryce Reagan 04-08-2024 05:35 AM Neck CTA 04/08/24 03:26 EXAM: CT angio neck with con CLINICAL HISTORY: Weakness. Fall from bed. TECHNIQUE: CT angiography study of the neck vessels with 120ml of Opitray-320mg/ml IV contrast was performed and multiple axial sections were obtained with coronal and sagittal reconstructions. One of the following dose reduction techniques were utilized for this exam: Automated exposure control, adjustment of the mA and/or kV according to patient size, and use of iterative reconstruction. One of these 3D techniques was utilized: Maximum Intensity Pixel (MIP), 3D Reconstructed Images, Volume Rendered Images, Surface Shaded Rendering. COMPARISON: None. FINDINGS: Carotid Arteries: Diffuse atherosclerotic changes of the extracranial carotid arterial system showing intimal irregularities. Atheromatous calcifications of the aortic arch. Calcified atheromatous plaques are seen involving both carotid bulbs bilaterally extending into both proximal part of internal carotid arteries extracranial segments and inducing mild luminal attenuation slightly more on the left side up to 30-40% luminal narrowing, no significant acute arterial occlusion Vertebral Arteries: Mild atherosclerotic changes of the extracranial vertebral arteries showing intimal thickening and tiny atheromatous plaques. No evidence of significant stenosis, occlusion, or aneurysm. No significant atherosclerotic changes. Jugular Veins: Normal opacification of the internal and external jugular veins bilaterally. No evidence of thrombosis or compression. Subclavian Arteries: Subclavian arteries bilaterally are well-opacified. No evidence of significant stenosis, occlusion, or aneurysm. Thyroid Gland: Thyroid gland with tiny hypodense foci/nodules. No masses. For US correlation. Soft Tissues: Normal appearance of the surrounding soft tissues of the neck. No abnormal masses or lymphadenopathy. Cervical Spine: Spondylosis. No fractures, lytic or sclerotic lesions. IMPRESSION: 1. Diffuse atherosclerotic changes of the extracranial carotid arterial system. 2. Atheromatous calcifications of the aortic arch. 3. Calcified atheromatous plaques of both carotid bulbs bilaterally extending into both proximal part of internal carotid arteries extracranial segments and inducing mild luminal attenuation slightly more on the left side up to 30-40% luminal narrowing. 4. Mild atherosclerotic changes of the extracranial vertebral arteries. Electronically signed by Bryce Reagan 04-08-2024 05:27 AM Supervising Physician Co-Signing Physician Notes Attending addendum: I have physically seen this patient, have supervised the medical residents activities, and agree with the H&P unless as otherwise noted. Assessment and Plan: Strokelike symptoms/bilateral lower extremity weakness- CT head without contrast shows left basal ganglia abnormality CTA neck atherosclerosis of both carotid bulbs nonlimiting Order MRI brain without contrast Stroke without thrombolytic order set Consult PT/OT/speech/neurology To get fast lipid panel and hemoglobin A1c Continue aspirin NSS at 125 mL/h x 1 L [employer] testing negative Hyperlipidemia- Continue atorvastatin Check a fasting lipid panel Insomnia/anxiety/depression- Continue current regimen medications for now, Ambien, Xanax and BuSpar may need to decrease if symptoms are persistent thought to be related Leukocytosis- Follow urine culture sensitivity No antibiotics at this time Resident Activity Tracking Resident Involvement: Resident Care Provided Care Provided: Adult Hospital Medicine
--- NOTE | 2024-04-08 05:27 | CT Scan Report ---
EXAM: CT angio neck with con CLINICAL HISTORY: Weakness. Fall from bed. TECHNIQUE: CT angiography study of the neck vessels with 120ml of Opitray-320mg/ml IV contrast was performed and multiple axial sections were obtained with coronal and sagittal reconstructions. One of the following dose reduction techniques were utilized for this exam: Automated exposure control, adjustment of the mA and/or kV according to patient size, and use of iterative reconstruction. One of these 3D techniques was utilized: Maximum Intensity Pixel (MIP), 3D Reconstructed Images, Volume Rendered Images, Surface Shaded Rendering. COMPARISON: None. FINDINGS: Carotid Arteries: Diffuse atherosclerotic changes of the extracranial carotid arterial system showing intimal irregularities. Atheromatous calcifications of the aortic arch. Calcified atheromatous plaques are seen involving both carotid bulbs bilaterally extending into both proximal part of internal carotid arteries extracranial segments and inducing mild luminal attenuation slightly more on the left side up to 30-40% luminal narrowing, no significant acute arterial occlusion Vertebral Arteries: Mild atherosclerotic changes of the extracranial vertebral arteries showing intimal thickening and tiny atheromatous plaques. No evidence of significant stenosis, occlusion, or aneurysm. No significant atherosclerotic changes. Jugular Veins: Normal opacification of the internal and external jugular veins bilaterally. No evidence of thrombosis or compression. Subclavian Arteries: Subclavian arteries bilaterally are well-opacified. No evidence of significant stenosis, occlusion, or aneurysm. Thyroid Gland: Thyroid gland with tiny hypodense foci/nodules. No masses. For US correlation. Soft Tissues: Normal appearance of the surrounding soft tissues of the neck. No abnormal masses or lymphadenopathy. Cervical Spine: Spondylosis. No fractures, lytic or sclerotic lesions. IMPRESSION: 1. Diffuse atherosclerotic changes of the extracranial carotid arterial system. 2. Atheromatous calcifications of the aortic arch. 3. Calcified atheromatous plaques of both carotid bulbs bilaterally extending into both proximal part of internal carotid arteries extracranial segments and inducing mild luminal attenuation slightly more on the left side up to 30-40% luminal narrowing. 4. Mild atherosclerotic changes of the extracranial vertebral arteries. Electronically signed by Bryce Reagan 04-08-2024 05:27 AM
--- NOTE | 2024-04-08 05:36 | CT Scan Report ---
EXAM: CT angio head w con CLINICAL HISTORY: Weakness, fall from bed. TECHNIQUE: CT angiography of the head was performed following the intravenous administration of 120 ml optiray 320 of iodinated contrast material. Contiguous axial images were obtained from the base of the skull to the vertex. Coronal and sagittal reformatted images were also reviewed. One of these 3D techniques was utilized: Maximum Intensity Pixel (MIP), 3D Reconstructed Images, Volume Rendered Images, Surface Shaded Rendering. One of the following dose-reduction techniques was utilized for this exam. Automated exposure control, adjustment of the mA and/or kV according to patient size, and use of iterative reconstruction. COMPARISON: Reviewing CT study made on the same day. FINDINGS: Intracranial Arteries: Atherosclerotic changes of the cavernous and supra-clinoid segments of both internal carotid arteries intracranial parts extending into M1 segment of both middle cerebral arteries without significant arterial stenosis or occlusion. Atherosclerotic changes of the intracranial segments of vertebral arteries with no significant vascular stenosis or occlusion. Otherwise, The intracranial arteries, including the anterior cerebral arteries, middle cerebral arteries, posterior cerebral arteries, basilar artery, and vertebral arteries, are all patent without evidence of significant stenosis, aneurysm, or dissection. There is no evidence of vascular malformations. [place]: The [place] is intact with no anatomical variations or abnormalities noted. All segments are well-visualized and normal in appearance. Venous System: The visualized portions of the venous system, including the dural venous sinuses, are patent with no evidence of thrombosis. Brain Parenchyma: A small hypodense area in the left basal ganglia not obvious in the previous CT. Advised MRI with DWI images to rule out acute ischemic insult if clinically warranted. No acute post-traumatic sequelae on CT head. Microvascular white matter ischemic changes and senile changes Bones: The bony structures of the skull are intact without evidence of fracture or destructive lesions. Soft Tissues: The visualized soft tissues of the head are unremarkable. Additional Findings: Right mastoiditis. IMPRESSION: 1. Atherosclerotic changes of the cerebral arteries without significant vascular stenosis or occlusion. 2. No acute bleeding or vascular aneurysms. 3. Right mastoiditis. Electronically signed by Bryce Reagan 04-08-2024 05:35 AM
[2024-04-08] MEDS ORDERED: ACETAMINOPHEN 325 MG TAB PO PRN (06:38)
[2024-04-08] MEDS ORDERED: busPIRone 5 MG TAB PO PRN (06:38)
[2024-04-08 06:55] VITALS: RESP 16; O2SAT 95
[2024-04-08] MEDS ORDERED: PANTOprazole 40 MG TAB PO PRN (07:03)
[2024-04-08] MEDS ORDERED: ZOLPIDEM TARTRATE 5 MG TAB PO PRN (07:05)
[2024-04-08 07:36] LABS: Appearance Urine Clear (Clear); Bilirubin Urine Negative (Negative); Blood Urine Negative (Negative); Color Urine Yellow; Glucose Urine UA Negative (Negative); Ketones Urine Negative (Negative); Leukocyte Esterase Urine Negative (Negative); Nitrite Urine Negative (Negative); Protein Urine Negative (Negative); Specific Gravity Urine 1.044 (1.000-1.030); Urobilinogen Urine Negative (Negative)
[2024-04-08] MEDS: LEVOTHYROXINE SODIUM 112 MCG TABLET PO SCH (08:06)
[2024-04-08] MEDS: ATORVASTATIN 10 MG TAB PO SCH (08:06)
[2024-04-08] MEDS: ALPRAZolam 0.25 MG TABLET PO SCH (08:08)
--- NOTE | 2024-04-08 09:37 | Neurology Consultation ---
Date of Consultation April 08, 2024 Assessment & Plan (1) TIA (transient ischemic attack): (2) Cerebrovascular disease: (3) Carotid stenosis: Plan Probable TIA presenting with bilateral leg weakness, drop attack, no other associated neurologic symptoms. Reported symptoms would localize to the anterior haylie/vertebrobasilar circulation, or possibly the medial frontal lobes/anterior cerebral artery circulation. A CT of the head revealed a possible subacute ischemic stroke within the left subinsular region. However, he does not present with any lateralizing signs or symptoms. Agree with brain MRI as ordered. If the MRI does reveal evidence of an acute ischemic infarct within the left anterior circulation (left MCA, left MENDOZA) would consider the possibility of ipsilateral carotid embolism as he does have up to a moderate degree of left carotid/internal carotid plaque. However, the degree of stenosis is only up to 40%. Nonetheless, an unstable plaque may not be completely excluded. In that context, would consult vascular surgery. If the MRI reveals multiple ischemic infarcts in several vascular territories, would consider cardioembolism, or possibly aortic arch embolism. Would recommend aspirin 81 mg/day. Would also recommend increasing his dosage of atorvastatin slightly given the observed extent of atherosclerotic disease, goal LDL 70 or less. Would also recommend an up-to-date transthoracic echocardiogram with bubble study. Consider mobile cardiac outpatient telemetry. Please call with any questions. History of Present Illness Reason for Consultation: stroke? 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 Upon attempting to stand he felt as if his legs had no power and he slid off the edge of the bed onto the floor, unable to move his legs. His symptoms persisted and his spouse contacted emergency medical services. He does not recall having any associated weakness of the upper limbs, no associated numbness, pain, dizziness, vertigo, change in vision or speech. His weakness had resolved by the time he was examined in the emergency department. He has never had a similar episode previously. He is a former smoker, quit in 1988, history also notable for dyslipidemia, on atorvastatin. He denies any recent illnesses and has not received any recent vaccinations. Allergies Allergy/AdvReac Type Severity Reaction Status Date / Time escitalopram [From Lexapro] AdvReac Unknown "med Verified 04/08/24 02:34 doesn't work" venlafaxine AdvReac Unknown "med Verified 04/08/24 02:34 doesn't work" Home Medications Medication Instructions Recorded Confirmed Type omeprazole 20 mg capsule,delayed 20 mg PO DAILY PRN dyspepsia #30 05/31/19 04/08/24 Rx release caps atorvastatin 10 mg tablet 10 mg PO DAILY #90 tabs 08/30/23 04/08/24 Rx levothyroxine 112 mcg tablet 112 mcg PO QAM #90 tabs 08/30/23 04/08/24 Rx zolpidem 10 mg tablet 10 mg PO HS PRN sleep #90 tabs 11/24/23 04/08/24 Rx tamsulosin 0.4 mg capsule 0.4 mg PO QPM #90 caps 01/12/24 04/08/24 Rx alprazolam 0.25 mg tablet 0.25 mg PO TID anxiety #270 tabs 04/06/24 04/08/24 Rx buspirone 5 mg tablet 5 mg PO BID PRN Anxiety 04/08/24 04/08/24 History Patient History Medical History Nausea and vomiting after administration of anesthetic agent Osteoarthritis History of gastric ulcer 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 Surgical History History of esophagogastroduodenoscopy (EGD) History of wisdom tooth extraction History of tooth extraction partial lower History of eye surgery right eye macular pucker H/O colonoscopy with polypectomy S/P knee surgery x2-- left knee S/P cholecystectomy S/P cataract surgery bilt Family History Mother Heart disease Myocardial infarction Grandmother (Maternal) Myocardial infarction Other No family history of adverse response to anesthesia Denies family history of Ovarian cancer Prostate cancer Breast cancer Colorectal cancer Social History Smoking Status: Former smoker Tobacco Type: Cigarettes Cigarettes Per Day: 2 packs; Smoking End Date: 1987; Second Hand Exposure: No; Do You Dip or Chew Tobacco: No; Tobacco Cessation Education Requested by Patient: No Hx Alcohol Use: Yes Alcohol type: beer and wine Alcohol Intake Frequency: Monthly or Less Hx Substance Use: No Preferred Language: Kyrgyz Communication Ability: Effective Visual Impairment: No Limitations Hearing Ability: Hard of Hearing Titrator Required: No Beliefs That Will Affect Care: None marital status: Current Living Situation: Spouse Current Living Situation Comment: home with spouse current occupational status: retired Other Information That Helps Us Care for You: No Feels Safe at Home: Yes Safety Concerns: Feels Safe At This Time Childhood Exposure to Second-Hand Smoke: Yes Dental Care, Regularly: No Physical Activity Frequency: 1-2 Times per Week Seatbelt Use: always Sunscreen Use: No Assistive Devices: Glasses Review of Systems Constitutional: no fever and no chills Eyes: no blind spots and no diplopia Ear, Nose, Mouth, Throat: + hearing loss (R>L, chronic) Respiratory: no cough and no dyspnea Cardiovascular: no chest pain and no palpitations Gastrointestinal: no nausea and no vomiting Genitourinary: no urinary incontinence Musculoskeletal: no back pain, no neck pain and no myalgia Integumentary: no rash and no lesions Neurologic: as per Subjective / HPI Psychiatric: no depression and no anxiety Hematologic / Lymphatic: no easy bleeding and no easy bruising Exam (Neuro) Constitutional: well developed and well nourished; no acute distress Eyes: normal visual cardoso by confrontation, PERRL, normal accommodation and EOM intact bilaterally; no nystagmus Neurologic: Oriented to:: Person, Place and Time Memory: Short Term Intact and Remote Intact Attention: Span Intact and Concentration Intact Language: Naming Objects and Repeating Phrases Speech Fluency: negative Dysarthria Speech Aphasia: negative Aphasia Fund of Knowledge: Current Events, Past History and Vocabulary Cranial Nerves: Normal II (Visual cardoso full to confrontation, visual acuity normal), III, IV, (Pupils equal round reactive to light and accommodation, eye movements normal), V (Facial sensation intact), VII (There is no facial droop or weakness), VIII (Hearing intact), IX, X (Palate elevates to midline), XI (Shoulder shrug intact) and XII (Tongue protrudes to midline) Motor Strength: Normal Lower Extremities and Normal Upper Extremities; negative Pronator Drift Motor Tone: Normal Lower Extremities and Normal Upper Extremities Muscle Bulk/Involuntary Movements: No Involuntary Movements; negative Muscle Atrophy Sensation: Light Touch Intact, Pain/Temperature Intact, Vibration Intact and Proprioception Intact Coordination: Normal; negative Limited Balance, Dysdiadochokinesia, Finger-Nose Abnormal or Heel-Choudhary Abnormal Deep Tendon Reflexes: Rt Triceps: 2+, Lt Triceps: 2+, Rt Biceps: 2+, Lt Biceps: 2+, Rt Brachioradialis: 2+, Lt Brachioradialis: 2+, Rt Patellar: 2+, Lt Patellar: 0 (History of left total knee arthroplasty), Rt Ankle: 1+ and Lt Ankle: 1+ Special Tests: negative Babinski Present Gait: Normal Station and Gait Results & Data Vital Signs (Past 12 Hours) Vital Signs Temp Pulse Pulse Resp BP BP Pulse Ox 04/08/24 06:46 90 04/08/24 06:40 36.6 C 83 16 147/77 H 95 04/08/24 06:20 66 18 124/71 98 04/08/24 05:24 93 H 04/08/24 05:00 75 18 120/66 99 04/08/24 03:00 84 18 129/65 95 04/08/24 01:14 91 H 04/08/24 01:10 04/08/24 01:04 36.9 C 92 H 20 184/83 H 95 O2 Del Method 04/08/24 06:46 04/08/24 06:40 Room Air 04/08/24 06:20 Room Air 04/08/24 05:24 04/08/24 05:00 Room Air 04/08/24 03:00 Room Air 04/08/24 01:14 04/08/24 01:10 Room Air 04/08/24 01:04 Room Air Laboratory Results WBC 12.08, hemoglobin 14.1, hematocrit 41.8, platelet count 189, sodium 132, potassium 3.8, BUN 12, creatinine 0.65, glucose 109, calcium 9.3, magnesium 2.1, AST 16, ALT 9 triglycerides 123, cholesterol 161, LDL 83, VLDL 25, HDL 53, TSH 3.457 Diagnostic Findings I independently reviewed the CT of the brain which reveals age-related atrophy and chronic small vessel ischemic disease. There is a bit more cortical atrophy for the right frontal lobe. There are calcifications throughout the vertebrobasilar and internal carotid arteries. There is a hypodensity within the left subinsular region that may be consistent with a subacute ischemic infarct. CT angiography of the head reveals diffuse atherosclerotic disease without significant stenosis or occlusion. CTA of the neck reveals mild to moderate bilateral carotid plaque, left greater than right. Electrocardiogram reveals a normal sinus rhythm. An echocardiogram completed November 05, 2023 revealed moderate concentric LVH, no regional wall motion abnormalities, moderate to severe aortic stenosis, mild mitral regurgitation, borderline dilated ascending aorta, normal left atrial size, no ASD. Coding Level of Care Code 38128 INT INP/OBS CARE 75MIN Diagnoses TIA (transient ischemic attack) G45.9 Cerebrovascular disease I67.9 Carotid stenosis I65.29 Time Spent (min) 90 Comment Total time includes patient contact, chart review, counseling, note preparation
--- NOTE | 2024-04-08 09:50 | Communication Note ---
Date of Service: April 08, 2024 Pt seen and examined. H&P reviewed. Will continue to follow neurology work up.
--- NOTE | 2024-04-08 10:24 | Magnetic Resonance Report ---
EXAM: MR brain wo con CLINICAL HISTORY: Followup to CT, CT head showed left basal ganglia with hypodensity pt c/o leg weakness. TECHNIQUE: MRI of the brain was performed without intravenous contrast with diffusion and multiplanar sequences obtained. COMPARISON: 04/08/2024 CT head reviewed. FINDINGS: Brain Parenchyma: Confluent periventricular bright T2 and FLAIR signal. Diffuse white matter and subcortical multiple foci of bright T2 and FLAIR signal most at parietal and centrum semiovale regions, with no diffusion restriction. No evidence of acute infarction or hemorrhage. Normal ivy-white matter differentiation. No mass lesions or focal cortical abnormalities were identified. Ventricles and Sulci: Prominent size of the lateral ventricles, third ventricle, and fourth ventricle. No evidence of hydrocephalus or ventriculomegaly. Sylvian fissures, sulci, and cisterns are within normal limits. Posterior Fossa: The cerebellum and brainstem appear normal without evidence of mass lesions or signal abnormalities. Cranial Nerves: Normal course and appearance of cranial nerves identified. Vessels: No evidence of vascular malformations or aneurysms. Intracranial arteries and veins appear normal without evidence of stenosis or occlusion. Orbits and Skull Base: Orbits and skull base structures are normal without evidence of abnormalities. Bilateral much more right-sided mastoiditis. IMPRESSION: Involutional brain changes. Microvascular white matter ischemic changes. No acute intracranial abnormality identified. Electronically signed by Bryce Reagan 04-08-2024 10:24 AM
[2024-04-08 11:23] VITALS: BP 155/71; PULSE 79; TEMP 97.7
--- NOTE | 2024-04-08 14:49 | Discharge Summary ---
Discharge Summary Date of Service April 08, 2024 Principal Dx & Hospital Course #1 = Principal Diagnosis (1) TIA (transient ischemic attack): Plan TIA -Neurlogy consult appreciated -MRI shows no evidence of ischemia -microvascular dz -recommending asa and statin -PT evaluation cleared for home discharge Admission HPI Per Admitting Provider Kyrie Kahn is a 83 year-old male who presented to the ED via ambulance due to weakness/inability to stand. His medical history is significant for dyslipidemia, depression with anxiety, GERD, hypothyroidism, insomnia, IBS, mild aortic stenosis. Patient states that he was reading in bed overnight when he tried to stand up to rearrange his pillows and found that he was unable to stand/support his weight. He states that he slid onto the ground and was unable to get up from the floor- he then called his who was in the home also and she called 911. Patient states that he can feel his legs like normal, no tingling or numbness and no upper extremity weakness. Denies prior episodes like this. Was feeling well in the past few weeks- no recent illnesses, no chest pain or SOB, no medication changes. Denies changes in his speech or vision. ED Course: -CT head -CTA head/neck -Chest x-ray -CBC, CMP, TSH Discharge Exam GENERAL APPEARANCE NAD, activity normal for age, well developed/ well nourished, no cyanosis, pallor, or diaphoresis. EYES lids/conjunctiva normal. EARS/NOSE/THROAT Mucous membranes moist, nares normal, lips/teeth normal uvula midline without oral pharyngeal erythema, exudate or swelling TMs normal bilaterally. No lymphangitis/lymphedema. HEAD/NECK normocephalic atraumatic, no facial trauma, neck is supple. RESPIRATORY respiratory effort normal, speaks in full sentences, no tripod position, no accessory muscle use. Lungs clear to auscultation without rhonchi, wheezes, rales CARDIAC Regular rate and rhythm, no edema. ABDOMINAL Soft, ND/NT. No evidence of fluid wave. No pulsatile masses on exam, rebound tenderness, Avila sign or pain over Mcburney's point. MUSCLES/EXTREMITIES No abnormal range of motion, no swelling. SKIN Warm, pink and dry. No rashes, dermatoses, petechiae or lesions. NEUROLOGICAL Speech is clear and appropriate. Normal level of consciousness. Gait and coordination are normal. 5/5 strength in all extremities. PSYCH Normal mood and affect. Judgement/competence is appropriate Discharge Plan Discharge Items Patient Disposition: Home - Self-Care Reason For Visit: LOWER EXTREMITY WEAKNESS Discharge Diagnosis: TIA Activity: Resume your previous activity Non-emergency contact: Primary Care Provider Call non-emergency contact if: you have any medication questions Follow-up/Referrals: Shaun Crandall MD [Primary Care Provider] - Diet: Regular Addtl Attending Provider Instructions: Follow up with PMD in 2 weeks Pending Studies at Discharge: No Stand-Alone Forms: [employer], Smoking Cessation Medications and DC Order Prescriptions: New aspirin 81 mg capsule 81 mg PO DAILY Qty: 60 0RF Continued zolpidem 10 mg tablet 10 mg PO HS PRN (Reason: sleep) Qty: 90 3RF tamsulosin 0.4 mg capsule 0.4 mg PO QPM Qty: 90 3RF Rx Instructions: take with supper alprazolam 0.25 mg tablet 0.25 mg PO TID Qty: 270 1RF omeprazole 20 mg capsule,delayed release(DR/EC) 20 mg PO DAILY PRN (Reason: dyspepsia) Qty: 30 2RF levothyroxine 112 mcg tablet 112 mcg PO QAM Qty: 90 3RF atorvastatin 10 mg tablet 10 mg PO DAILY Qty: 90 3RF buspirone 5 mg tablet 5 mg PO BID PRN (Reason: Anxiety) Discharge Orders: Discharge Order (Routine); Ordered 04/08/24 Ordered By: Aidan Limon Admission Data Admit Date/Time: 04/08/24 05:40 Attending Provider: Aidan Limon Admit Provider: Emily Gonsalves Primary Care Provider: Shaun Crandall Other Providers: Sebastien Gavin Brian A. Hospital Stay Data Consultations 04/08/24 04:47 ED Decision to Admit Stat 04/08/24 06:38 Consult Neurology Routine Diagnostic Imagining Performed 04/08/24 01:19 CT head/brain wo con Stat 04/08/24 03:26 CT angio head w con Stat CT angio neck with con Stat 04/08/24 05:42 MRI Brain [MR brain wo con] Urgent Pending Results Patient Have Any Pending Studies at Discharge: No Discharge Instructions Given to Patient (Per Discharging Provider) Follow up with PMD in 2 weeks Total Time Total Time Spent Total Time Spent (In Minutes): 40 Coding Level of Care Code 65903 INP/OBS DISCH >30 MIN Diagnoses TIA (transient ischemic attack) G45.9
[2024-04-08] MEDS ORDERED: TAMSULOSIN HCL 0.4 MG CAP PO SCH (16:30)
--- NOTE | 2024-04-09 01:28 | Billing Data ---
Date of Service April 09, 2024 Coding Level of Care Code 91544 INT INP/OBS CARE
--- NOTE | 2024-04-10 16:16 | Electrocardiogram Report ---
Test Reason : Blood Pressure : */* mmHG Vent. Rate : 87 BPM Atrial Rate : 87 BPM P-R Int : 200 ms QRS Dur : 84 ms QT Int : 360 ms P-R-T Axes : 45 1 54 degrees QTcB Int : 433 ms Normal sinus rhythm Minimal voltage criteria for LVH, may be normal variant Borderline ECG When compared with ECG of 04-May-2017 16:41, QT has shortened Confirmed by Steven Lezama ([id number]) on 04/10/2024 4:16:45 PM Referred By: Confirmed By: Steven Lezama
== END 2024-04-08 14:00 | disposition home or self-care (01) | DRG 69 ==
LOC: ED 01:02 → 2N 05:40 → SUATTDRO 05:40 → INTOOBSV 05:40 → 2N 06:20